=== PATIENT | female | born 1955 | race Caucasian/White ===

== ENCOUNTER 2019-04-09 09:47 | Inpatient (IN) | payer MEDICARE, BC ==
[~2019-04-09 09:47] MED LIST: CEFAZOLIN 2 GM/50 ML (PMX) 50 ML IVPB; LACTATED RINGER'S 1,000 ML IV
[2019-04-09] MEDS ORDERED: DIPHENHYDRAMINE 50 MG INJ IV ×2 (12:00→12:30)
[2019-04-09] MEDS ORDERED: ALBUTEROL 0.083% (NEB) 2.5 MG/3 ML AMP HHN (12:00)
[2019-04-09] MEDS ORDERED: FENTAnyl 50 MCG/ML VIAL IV ×2 (12:00)
[2019-04-09] MEDS ORDERED: HYDROmorphONE 1 MG/5 ML IV SYRINGE IV ×3 (12:00)
[2019-04-09] MEDS ORDERED: GLYCOPYRROLATE 0.4 MG INJ (12:00)
[2019-04-09] MEDS ORDERED: MEPERIDINE 25 MG INJ IV (12:00)
[2019-04-09] MEDS ORDERED: HYDROCODONE/APAP (5/325) TAB PO (12:30)
[2019-04-09] MEDS ORDERED: CYCLOBENZAPRINE 10 MG TAB PO (12:30)
[2019-04-09] MEDS ORDERED: AL HYDROX/MG HYDROX/SIMETH 30 ML CUP PO (12:30)
[2019-04-09] MEDS ORDERED: DIPHENHYDRAMINE 25 MG CAP PO (12:30)
[2019-04-09] MEDS ORDERED: NALOXONE (0.4 MG/ML) INJ IV (12:30)
[2019-04-09] MEDS ORDERED: CEPASTAT LOZENGE MT (12:30)
[2019-04-09] MEDS ORDERED: ACETAMINOPHEN 325 MG TAB PO (12:30)
[2019-04-09] MEDS ORDERED: HYDROmorphONE 0.5 MG/0.5 ML SYG IV (12:30)
[2019-04-09] MEDS ORDERED: BISACODYL 10 MG SUPP PR (12:30)
[2019-04-09] MEDS: CEFAZOLIN 1 GM/50 ML (PMX) 50 ML IVPB ×2 (12:30→20:17)
[2019-04-09] MEDS ORDERED: FENTAnyl 50 MCG/ML VIAL ×2 (12:40→13:41)
[2019-04-09] MEDS: BUPIVACAINE 0.25%/EPI (SDV) 30 ML INJ (14:32)
[2019-04-09] MEDS: GELATIN SIZE 100 SPONGE (14:32)
[2019-04-09] MEDS: THROMBIN 5000 UNIT (RECOTHROM) VIAL (14:33)
[2019-04-09] MEDS: POLYMYXIN/BACITRACIN 1L IRRIG (14:33)
[2019-04-09] MEDS ORDERED: SUCCINYLCHOLINE CHLORIDE 100 MG/5 ML SYG IV (16:12)
[2019-04-09] MEDS ORDERED: SUGAMMADEX SODIUM 200 MG/2 ML VIAL IV ×2 (16:12→16:19)
[2019-04-09] MEDS ORDERED: PROPOFOL 20 ML (16:12)
[2019-04-09] MEDS ORDERED: CEFAZOLIN 1 GM INJ (16:12)
[2019-04-09] MEDS ORDERED: ROCURONIUM 50 MG INJ (16:12)
[2019-04-09] MEDS ORDERED: LIDOCAINE 100 MG SYRINGE (16:12)
[2019-04-09] MEDS: HYDROmorphONE 0.2 MG/ML PCA IV (16:40)
[2019-04-09] MEDS: ONDANSETRON 4 MG INJ IV ×2 (17:16→21:45)
[2019-04-09] MEDS: METOCLOPRAMIDE 10 MG INJ IV (17:38)
[2019-04-09] MEDS: D5W-0.45 NACL + KCL 20 MEQ 1,000 ML IV ×2 (18:10→21:45)
[2019-04-09] MEDS: DOCUSATE SODIUM 100 MG CAP PO (20:17)
[2019-04-09] MEDS: ATORVASTATIN 10 MG TAB PO (20:17)
[2019-04-10] MEDS: CEFAZOLIN 1 GM/50 ML (PMX) 50 ML IVPB (04:15)
[2019-04-10] MEDS: D5W-0.45 NACL + KCL 20 MEQ 1,000 ML IV ×2 (04:15→18:21)
[2019-04-10 05:02] LABS: ADD MAN DIFF? NO
[2019-04-10 05:09] LABS: BASOPHILS % 0.4 % (0.0-2.0); EOSINOPHILS % 0.2 % (0.0-7.0); HEMATOCRIT 39.3 % (37.0-47.0); HEMOGLOBIN 12.8 g/dl (12.0-16.0); LYMPHOCYTES # 1.9 10^3/ul (0.8-2.9); LYMPHOCYTES % 17.1 % (15.0-51.0); MEAN CORPUSCULAR HEMOGLOBIN 31.4 pg (29.0-33.0); MEAN CORPUSCULAR HGB CONC 32.6 g/dl (32.0-37.0); MEAN CORPUSCULAR VOLUME 96.3 fl (82.0-101.0); MEAN PLATELET VOLUME 9.9 fl (7.4-10.4); MONOCYTES % 9.1 % (0.0-11.0); NEUTROPHIL # 8.3 10^3/ul (1.6-7.5); NEUTROPHILS % 72.8 % (39.0-77.0); PLATELET COUNT 190 10^3/UL (140-415); RED BLOOD COUNT 4.08 10^6/ul (4.20-5.40)
[2019-04-10 05:09] LABS: WHITE BLOOD COUNT 11.3 10^3/ul (4.8-10.8)
[2019-04-10 05:48] LABS: ANION GAP 5 (5-13); BLOOD UREA NITROGEN 9 mg/dl (7-20); CALCIUM 8.5 mg/dl (8.4-10.2); CARBON DIOXIDE 26 mmol/L (21-31); CHLORIDE 107 mmol/L (97-110); CREATININE 0.75 mg/dl (0.44-1.00); Estimated GFR > 60 mL/min (>60); GLUCOSE 137 mg/dl (70-220); POTASSIUM 4.1 mmol/L (3.5-5.1); SODIUM 138 mmol/L (135-144)
[2019-04-10] MEDS: ONDANSETRON 4 MG INJ IV (09:06)
[2019-04-10] MEDS: DOCUSATE SODIUM 100 MG CAP PO ×2 (09:09→20:42)
[2019-04-10] MEDS: HYDROCODONE/APAP (5/325) TAB PO ×2 (11:24→18:12)
[2019-04-10] MEDS: ATORVASTATIN 10 MG TAB PO (20:42)
[2019-04-11 04:59] LABS: ADD MAN DIFF? NO
[2019-04-11 05:10] LABS: WHITE BLOOD COUNT 11.1 10^3/ul (4.8-10.8)
[2019-04-11 05:10] LABS: BASOPHILS % 0.4 % (0.0-2.0); EOSINOPHILS # 0.1 10^3/ul (0.0-0.5); EOSINOPHILS % 0.6 % (0.0-7.0); HEMATOCRIT 39.2 % (37.0-47.0); HEMOGLOBIN 12.8 g/dl (12.0-16.0); LYMPHOCYTES # 1.8 10^3/ul (0.8-2.9); MEAN CORPUSCULAR HEMOGLOBIN 31.2 pg (29.0-33.0); MEAN CORPUSCULAR HGB CONC 32.7 g/dl (32.0-37.0); MEAN CORPUSCULAR VOLUME 95.6 fl (82.0-101.0); MEAN PLATELET VOLUME 9.9 fl (7.4-10.4); MONOCYTE # 1.3 10^3/ul (0.3-0.9); MONOCYTES % 11.5 % (0.0-11.0); NEUTROPHIL # 7.9 10^3/ul (1.6-7.5); NEUTROPHILS % 71.1 % (39.0-77.0); PLATELET COUNT 193 10^3/UL (140-415); RED CELL DISTRIBUTION WIDTH 11.9 % (11.5-14.5)
[2019-04-11 05:43] LABS: ANION GAP 5 (5-13); BLOOD UREA NITROGEN 5 mg/dl (7-20); CALCIUM 8.8 mg/dl (8.4-10.2); CARBON DIOXIDE 29 mmol/L (21-31); CHLORIDE 108 mmol/L (97-110); CREATININE 0.76 mg/dl (0.44-1.00); Estimated GFR > 60 mL/min (>60); GLUCOSE 112 mg/dl (70-220); MAGNESIUM 2.1 mg/dl (1.7-2.5); PHOSPHORUS 2.9 mg/dl (2.5-4.9); POTASSIUM 4.1 mmol/L (3.5-5.1); SODIUM 142 mmol/L (135-144)
[2019-04-11] MEDS: DOCUSATE SODIUM 100 MG CAP PO (08:36)
[2019-04-11] MEDS: HYDROCODONE/APAP (5/325) TAB PO ×2 (08:37→11:51)
== END 2019-04-11 12:00 | disposition home or self-care (01) | DRG 473 ==
LOC: REC 09:47 → MS1 18:00
PROC: 0RG20A0 Fusion of 2 or more Cervical Vertebral Joints with Interbody Fusion Device, Anterior Approach, Anterior Column, Open Approach (ICD-10-PCS; principal; 2019-04-09 11:31)
PROC: 0RB30ZZ Excision of Cervical Vertebral Disc, Open Approach (ICD-10-PCS; 2019-04-09 11:31)
PROC: 01N10ZZ Release Cervical Nerve, Open Approach (ICD-10-PCS; 2019-04-09 11:31)
PROC: 4A11X4G Monitoring of Peripheral Nervous Electrical Activity, Intraoperative, External Approach (ICD-10-PCS; 2019-04-09 11:31)
DX: M50.121 Cervical disc disorder at C4-C5 level with radiculopathy (principal); M48.02 Spinal stenosis, cervical region; E78.5 Hyperlipidemia, unspecified; Z86.73 Personal history of transient ischemic attack (TIA), and cerebral infarction without residual deficits
CPT/HCPCS: 72050; 80048; 83735; 84100; 85025; 87086; 88307; 97116; 97162; 97530